=== PATIENT | male | born 1990 ===

== ENCOUNTER 2018-02-26 14:37 | Emergency (ER) | payer OTHER ==
[~2018-02-26] VITALS: Ht 170.2 cm; Wt 158.8 kg
[~2018-02-26 14:37] MED LIST: ALBUTEROL2.5 MG/3 M IH; GILTUSS TR TAB1 EACH PO; MEDROLPACK PO; VENTOLIN HFA18 GM IH
== END 2018-02-26 18:49 | disposition home or self-care (01) ==
LOC: ER 14:37
DX: J45.998 Other asthma (principal)

== ENCOUNTER 2019-12-05 21:48 | Emergency (ER) | payer OTHER ==
[~2019-12-05] VITALS: Ht 167.6 cm; Wt 155.6 kg
== END 2019-12-05 22:51 | disposition home or self-care (01) ==
LOC: ER 21:48
DX: M62.838 Other muscle spasm (principal); S13.8XXS Sprain of joints and ligaments of other parts of neck, sequela; X50.1XXS Overexertion from prolonged static or awkward postures, sequela